=== PATIENT | female | born 1940 | race Asian ===

== ENCOUNTER 2021-10-22 04:56 | Emergency (ER) | payer MEDICARE ==
[~2021-10-22] VITALS: Ht 160 cm; Wt 56.7 kg
[2021-10-22 04:58] VITALS: BP_SYST 148
[2021-10-22] MEDS: dilTIAZem HCL IVP 5 MG/ML VIAL IVP ONE ×2 (05:23→06:06)
[2021-10-22] MEDS: ONDANSETRON HCL 4 MG/2 ML VIAL IVP ONE (05:24)
[2021-10-22] MEDS: NACL 0.9% 1,000 ML IV ONE (05:41)
[2021-10-22 05:52] LABS: ANION GAP 14 (5-15); CALCIUM 10.1 mg/dL (8.4-11.0); CHLORIDE 95 mmol/L (98-107); GLUCOSE 237 mg/dL (70-99); POTASSIUM 4.4 mmol/L (3.5-5.1); SODIUM SERUM 128 mmol/L (136-145); UREA NITROGEN, BLOOD 23 mg/dL (8-21)
[2021-10-22] MEDS ORDERED: *HEPARIN PER PHARMACY XX ONE (06:00)
[2021-10-22 06:01] LABS: ALANINE AMINOTRANSFERASE 33 U/L (12-78); ALBUMIN 3.8 g/dL (3.4-4.8); ASPARTATE AMINOTRANSFERASE 36 U/L (10-37); LIPASE 368 U/L (73-393); TOTAL BILIRUBIN 0.2 mg/dL (0.0-1.0)
[2021-10-22] MEDS ORDERED: SYN50 PO ×2 (06:20→06:21)
[2021-10-22] MEDS ORDERED: GLIP5TAB26 PO ×2 (06:22→06:28)
[2021-10-22] MEDS ORDERED: ATEN-41 PO ×2 (06:23→06:40)
[2021-10-22] MEDS ORDERED: ASPI-1393 PO (06:24)
[2021-10-22] MEDS ORDERED: PROB500T9 PO (06:24)
[2021-10-22] MEDS ORDERED: FAMO40TA7 PO (06:25)
[2021-10-22] MEDS ORDERED: METF500S9 PO (06:26)
[2021-10-22] MEDS ORDERED: ATOR40TA68 PO (06:27)
[2021-10-22] MEDS ORDERED: AMLO5TAB4 PO (06:29)
[2021-10-22] MEDS ORDERED: LISI40TA13 PO (06:30)
[2021-10-22] MEDS ORDERED: GLUC100017 PO (06:42)
[2021-10-22 06:44] LABS: ACETONE, SERUM NEGATIVE (NEGATIVE)
[2021-10-22] MEDS ORDERED: [UNRECOGNIZED DRUG - CODE] PO (06:47)
[2021-10-22] MEDS: DILTIAZEM HCL 60 MG TABLET PO ONE (07:01)
[2021-10-22] MEDS: ASPIRIN 81 MG TABLET(ECOTRIN) PO ONE (07:41)
[2021-10-22 08:01] LABS: BASOPHILS # (AUTO) 0.1 K/uL (0.0-0.2); EOSINOPHILS % (AUTO) 0.5 % (0.0-4.0); HEMATOCRIT 33.2 % (36-48); HEMOGLOBIN 11.6 g/dL (12.0-16.0); LYMPHOCYTES # (AUTO) 1.5 K/uL (1.0-5.5); LYMPHOCYTES % (AUTO) 18.7 % (20.5-51.5); MEAN CORPUSCULAR HEMOGLOBIN 32 pg (27-31); MEAN CORPUSCULAR HGB CONC 35 % (32-36); MEAN CORPUSCULAR VOLUME 91 fL (79.0-98.0); MONOCYTES # (AUTO) 0.5 K/uL (0.0-1.0); MONOCYTES % (AUTO) 5.7 % (1.7-9.3); NEUTROPHILS # (AUTO) 5.9 K/uL (1.8-7.7); NEUTROPHILS % (AUTO) 74.1 % (40.0-70.0); PLATELET COUNT (AUTO) 239 K/uL (130-430); RED BLOOD CELL COUNT(AUTO) 3.66 MIL/uL (4.2-6.2); RED CELL DISTRIBUTION WIDTH 12.6 % (9.0-15.0)
[2021-10-22 08:53] LABS: INR 0.9 (0.8-1.2); PROTHROMBIN TIME 9.6 SECS (9.5-12.5)
[2021-10-22] MEDS ORDERED: HEPARIN 25,000 UNITS in 250 ML PREMIX IV PRN (09:15)
[2021-10-22] MEDS ORDERED: HEPARIN SODIUM,PORCINE 2000 UNITS/0.4 ML BOLUS IVP PRN (09:15)
[2021-10-22] MEDS ORDERED: HEPARIN SODIUM,PORCINE 3000 UNITS/0.6 ML BOLUS IVP PRN (09:15)
[2021-10-22 09:26] LABS: BILIRUBIN,URINE NEGATIVE (NEGATIVE); BLOOD, URINE NEGATIVE (NEGATIVE); CLARITY/URINE CLEAR (CLEAR); COLOR,URINE YELLOW (YELLOW); GLUCOSE,URINE 1+ (NEGATIVE); KETONES,URINE NEGATIVE (NEGATIVE); LEUKOCYTE ESTERASE ,URINE NEGATIVE (NEGATIVE); NITRITE, URINE NEGATIVE (NEGATIVE); PH,URINE 5.5 (5.0-8.0); PROTEIN URINE NEGATIVE (NEGATIVE); UROBILINOGEN,URINE 0.2 (0.2-1.0)
[2021-10-22] MEDS: HEPARIN 25,000 UNITS/D5W 250ML 250 ML IV ONE (09:45)
[2021-10-22] MEDS: HEPARIN SODIUM,PORCINE 5,000 UNITS/ML VIAL IV ONE (09:46)
[2021-10-22 10:31] LABS: BACTERIA,URINE RARE /HPF (None Seen); RBC,URINE NONE SEEN /HPF (0-3); WBC,URINE 0-3 /HPF (0-3)
[2021-10-22 11:39] VITALS: BP_SYST 127
== END 2021-10-22 11:50 | disposition short-term general hospital (02) ==
LOC: SED 04:56
DX: I48.91 Unspecified atrial fibrillation (principal); R42 Dizziness and giddiness; R11.2 Nausea with vomiting, unspecified; I10 Essential (primary) hypertension; E11.9 Type 2 diabetes mellitus without complications; Z79.899 Other long term (current) drug therapy; Z20.822 Contact with and (suspected) exposure to COVID-19
CPT/HCPCS: 99291; 96374; 96375; 70450; 96361; 87426; 80053; 81000; 82009; 82962; 83880; 83690; 85025; 85610; 85730; 87040; 87086; 84484; 36415; 93005; 71045; 76376; 36600; 82803; 83605; J3490; J2405; J7030; J1644 ×2